=== PATIENT | male | born 1955 | race Caucasian/White ===

== ENCOUNTER 2024-09-14 09:20 | Outpatient (CLI) | payer MEDICARE | END 2024-09-14 09:21 | disposition home or self-care (01) | LOC: NM 09:20 | PROVIDERS: ATTEND Family Medicine | DX: Q78.2 Osteopetrosis (principal); M89.9 Disorder of bone, unspecified; Z85.46 Personal history of malignant neoplasm of prostate | CPT/HCPCS: 78306; A9503 ==